=== PATIENT | female | born 1995 | race Caucasian/White ===

== ENCOUNTER → 2017-02-02 | Outpatient (CLI) | payer BC ==
--- NOTE | 2017-02-02 15:09 | RAD ---
EXAM DESCRIPTION: Neck,Soft Tissue CLINICAL HISTORY: DYSPHAGIA COMPARISON: None. TECHNIQUE: AP/lateral FINDINGS: The cervical vertebral bodies are in good AP alignment. No soft tissue swelling is observed. No repeat foreign bodies are detected in the soft tissues. The epiglottis and aryepiglottic folds are intact. IMPRESSION: Normal soft tissue views of the neck. Electronically signed by: Matthew Gay MD 02/02/2017 3:07 PM CDT
== END ==
LOC: RAD 10:08
PROVIDERS: ATTEND Nurse Practitioner Family
DX: R13.10 Dysphagia, unspecified (principal)

== ENCOUNTER → 2017-02-03 | Outpatient (CLI) | payer BC | END | disposition home or self-care (01) | LOC: LAB.O 11:59 | PROVIDERS: ATTEND Nurse Practitioner Family | DX: R59.0 Localized enlarged lymph nodes (principal) ==